=== PATIENT | female | born 1995 | race Caucasian/White ===

== ENCOUNTER 2024-04-30 21:21 | Emergency (ER) | payer OTHER, BC ==
[2024-04-30] MEDS: Ondansetron 4 MG/2 ML SDV IVPUSH ONE (21:58)
[2024-04-30] MEDS: Ketorolac 30 MG/ML SDV IVPUSH ONE (21:58)
[2024-04-30] MEDS: Sodium Chloride 0.9% 10 ML Syringe FLUSH PRN (21:59)
[2024-04-30] MEDS: Acetaminophen/oxyCODONE 325-5 MG Tab PO ONE (23:18)
[2024-04-30] MEDS: Prochlorperazine 10 MG/2 ML SDV IVPUSH ONE (23:43)
[2024-04-30 23:52] VITALS: BP 152/81; PULSE 72
== END 2024-04-30 23:50 | disposition home or self-care (01) ==
LOC: JD.ED 21:21
DX: S13.9XXA Sprain of joints and ligaments of unspecified parts of neck, initial encounter (principal); S00.03XA Contusion of scalp, initial encounter; Z88.1 Allergy status to other antibiotic agents; V89.9XXA Person injured in unspecified vehicle accident, initial encounter; Y92.410 Unspecified street and highway as the place of occurrence of the external cause
CPT/HCPCS: 36415; 70450; 72125; 84703; 96374; 96375; 99284; A9270; J0780; J1885; J2405; J3490